=== PATIENT | male | born 1975 | race Caucasian/White ===

== ENCOUNTER 2021-06-26 06:12 | Day surgery (SDC) | payer SELFPAY ==
[2021-06-19 11:38] VITALS: BMI 29.9
[2021-06-26] MEDS ORDERED: LIDOCAINE HCL 1%, 10 MG/ML (20ML VIAL) ONE (07:34)
[2021-06-26] MEDS ORDERED: EPINEPHrine/PF 1 MG/1 ML (1:1,000) AMPULE ONE (07:34)
[2021-06-26] MEDS ORDERED: BACITRACIN 15 GM TUBE TOPICAL OINTMENT ONE ×2 (07:35→11:13)
[2021-06-26] MEDS ORDERED: ROCURONIUM BROMIDE 50 MG/5 ML SYRINGE ONE (07:48)
[2021-06-26] MEDS ORDERED: ceFAZolin SODIUM 1 GM VIAL ONE (07:48)
[2021-06-26] MEDS ORDERED: KETOROLAC TROMETHAMINE 30 MG/1 ML VIAL ONE (07:48)
[2021-06-26] MEDS ORDERED: ONDANSETRON 4 MG/2 ML VIAL ONE (07:48)
[2021-06-26] MEDS ORDERED: PROPOFOL 20 ML ONE ×10 (07:48→11:37)
[2021-06-26] MEDS ORDERED: DEXAMETHASONE SOD PHOSPHATE 4 MG/1 ML VIAL ONE (07:48)
[2021-06-26] MEDS ORDERED: fentaNYL CITRATE 250 MCG/5 ML VIAL ONE (07:48)
[2021-06-26] MEDS ORDERED: SUCCINYLCHOLINE CHLORIDE 200 MG/10 ML SYRINGE ONE (07:48)
[2021-06-26] MEDS ORDERED: MIDAZOLAM HCL 2 MG/2 ML SINGLE DOSE VIAL ONE (07:48)
[2021-06-26] MEDS ORDERED: HYDROmorphone HCL/PF 1 MG/ML VIAL ONE ×2 (10:53→11:08)
[2021-06-26] MEDS ORDERED: GUM MASTIC/STORAX/MSAL/ALCOHOL 1 DRP DROPSBTL MC ONE (11:32)
[2021-06-26] MEDS ORDERED: BACITRACIN 15 GM TUBE TOPICAL OINTMENT TP ONE (12:00)
[2021-06-26] MEDS ORDERED: oxyCODONE HCL 5 MG TABLET PO PRN ×2 (12:42)
[2021-06-26] MEDS ORDERED: PROMETHAZINE HCL 25 MG/1 ML VIAL IVPUSH PRN (12:42)
[2021-06-26] MEDS ORDERED: ONDANSETRON 4 MG/2 ML VIAL IVPUSH PRN (12:42)
[2021-06-26 14:35] VITALS: TEMP 98.1
[2021-06-26 14:41] VITALS: BP 94/56; PULSE 76
== END 2021-06-26 14:35 | disposition home or self-care (01) ==
LOC: FASU 06:12 → EDBD 08:00 → FASU 14:35
PROVIDERS: ATTEND Surgery
PROC: 0J073ZZ Alteration of Back Subcutaneous Tissue and Fascia, Percutaneous Approach (ICD-10-PCS; 2021-06-26)
PROC: 0J083ZZ Alteration of Abdomen Subcutaneous Tissue and Fascia, Percutaneous Approach (ICD-10-PCS; principal; 2021-06-26 09:30)
DX: E65 Localized adiposity (principal)
CPT/HCPCS: 94760